=== PATIENT | female | born 1955 | race Caucasian/White ===

== ENCOUNTER 2018-04-12 12:43 | Emergency (ER) | payer MEDICARE ==
[2018-04-12] VITALS (7 sets, daily range): BP systolic 142–168; BP diastolic 62–101; PULSE 67–92; RESP 16–18; TEMP 99; O2SAT 96–98
[~2018-04-12 12:43] MED LIST: CALCCHW25 PO; CYMB60CA PO; HYDR-3133 PO; INFL100P IV; LIBRAX PO; LIDO5T TOP; LORTA10 PO; OMEP20CA5 PO; POLY119S PO; SERU1POW PO; SULF500 PO; VITA400D PO; ZOFR4TAB3 SL
[2018-04-12] MEDS ORDERED: SODIUM CHLOR 0.9% 1000 ML INJ 1,000 ML IV SCH (13:21)
[2018-04-12] MEDS ORDERED: METH2.5T PO (13:30)
[2018-04-12] MEDS ORDERED: CYMB60CA PO (13:30)
[2018-04-12] MEDS ORDERED: MORPHINE SULFATE 2 MG/ML SYRINGE IV PUSH ONE ×2 (13:30→15:45)
[2018-04-12] MEDS ORDERED: FOLI400T PO (13:30)
[2018-04-12] MEDS ORDERED: ONDANSETRON ODT 4 MG TAB PO ONE (13:30)
[2018-04-12] MEDS ORDERED: SODIUM CHLORIDE 0.9% FLUSH 10 ML FLUSH IV FLUSH PRN (13:30)
[2018-04-12] MEDS ORDERED: INFL100P INFIL (13:30)
[2018-04-12] MEDS ORDERED: TREX5TAB IM (13:30)
--- NOTE | 2018-04-12 13:40 | PD ---
HPI Chief Complaint: Abdominal Pain Time Seen by Provider: 13:16 Travel History International Travel<30 days: No Contact w/Intl Traveler<30days: No Traveled to known affect area: No History of Present Illness HPI 62-year-old female with history of Crohn's, alcohol induced pancreatitis 4 years ago, here with complaints of abdominal pain and possible pancreatitis. Patient reports that the pain has been going on for about 4 weeks. She was seen by her corn miller on Friday at [facility], and lab work was ordered by them to be performed tomorrow. Patient states that overnight her pain has significantly increased. Pain is epigastric, described as cramping, constant. Patient reports several loose/brown bowel movements that are nonbloody. She also reports intermittent episodes of clear emesis that is also nonbloody and nonbilious. History of cholecystectomy, hysterectomy, and appendectomy. No fevers or chills. No chest pain. 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, SCLERODERMA, LUPUS) Anxiety: Yes Depression: Yes Cancer: No Cardiovascular Problems: No Diabetes: No Diminished Hearing: No Endocrine: No Gastrointestinal Disorders: Yes (ESOPHAGEAL DILTATIONS) GERD: Yes Genitourinary: Yes (URETHRAL DILITATION Q4-6 MONTHS) Hiatal Hernia: No Immune Disorder: Yes (LUPUS) Kidney Stones: No Musculoskeletal: Yes Neurologic: No Psychiatric: Yes (DEPRESSION) Respiratory: Yes (LLL COLLAPSED 3 WEEKS AGO) Immunizations Current: No Renal Failure: No Thyroid Disease: No Tetanus Vaccination: > 5 Years Influenza Vaccination: Yes ?: Not : 1 : 1 Past Surgical History Abdominal Surgery: Yes ( PANCREATIC SURGERY) AICD: No Appendectomy: Yes Body Medical Devices: PANCREATIC STENTS Cardiac Surgery: No Cholecystectomy: Yes Ear Surgery: No Endocrine Surgery: No Eye Surgery: No Genitourinary Surgery: No Gynecologic Surgery: Yes (HYSTERECTOMY) Hysterectomy: Yes Joint Replacement: No Oral Surgery: Yes (TONSILLECTOMY) Pacemaker: No Thoracic Surgery: No Tonsillectomy: Yes Other Surgery: Yes (ESOPHAGEAL DILITATIONS, PANCREATIC DUCT REPAIR) Social History Alcohol Use: No (DENIES/quit 3 years ago) Tobacco Use: Yes (4 CIGS A DAY) Substance Use: Yes (mj, hx of etoh) Allergies-Medications (Allergen,Severity, Reaction): Coded Allergies: atropine (Verified Adverse Reaction, Severe, SEVERE AGGITATION, 04/12/18) benztropine (Verified Adverse Reaction, Severe, SEVERE AGGITATION, 04/12/18 ) cyclopentolate (Verified Adverse Reaction, Severe, SEVERE AGGITATION, 04/12) glycopyrrolate (Verified Adverse Reaction, Severe, SEVERE AGGITATION, 04/12) ipratropium (Verified Adverse Reaction, Severe, SEVERE AGGITATION, 04/12/18 ) oxybutynin (Verified Adverse Reaction, Severe, SEVERE AGGITATION, 04/12/18) trihexyphenidyl (Verified Adverse Reaction, Severe, SEVERE AGGITATION, ) tropicamide (Verified Adverse Reaction, Severe, SEVERE AGGITATION, 04/12/18 ) Uncoded Allergies: NSAIDS (Adverse Reaction, Severe, STOMACH CRAMPING, 07/11/11) SINACLON (Adverse Reaction, Severe, SUICIDAL IDEATIONS, 07/11/11) Reported Meds & Prescriptions Reported Meds & Active Scripts Active Reported Calcium 500 +D (Calcium Carbonate-Cholecalciferol) 500-400 Mg-Unit Tab 1 Tab PO BID Vitamin D-400 (Cholecalciferol) 400 Unit Tab 400 Units PO DAILY Lorazepam 1 Mg Tab 1 Mg PO HS PRN Lidocaine Patch 12 HR (Lidocaine) 5 % Patch 1 Patch TOPICAL DAILY PRN Remove patch after 12 hours Digestive Advantage Probiotic (Lactobacillus Rhamnosus (GG)) 1 Chew 1 Tab CHEW DAILY Zofran (Ondansetron HCl) 4 Mg Tab 4 Mg PO Q6HR PRN Hydrocodone-Acetaminophen 10-300 Tab 1 Tab PO Q6H PRN Omeprazole 20 Mg Tab 20 Mg PO DAILY Librax (Chlordiazepoxide/Clidinium) 5-2.5 Mg Cap 1 Cap PO TID PRN Trexall (Methotrexate) 5 Mg Tab 5 Mg IM Q7D Methotrexate 2.5 Mg Tab 8 Mg PO Q7D Folic Acid 0.4 Mg Tab 1,000 Mcg PO DAILY Cymbalta DR (Duloxetine HCl) 60 Mg Capdr 60 Mg PO DAILY Remicade Inj (Infliximab) 100 Mg Inj 10 Mg INFIL [id number] Review of Systems Except as stated in HPI: all other systems reviewed are Neg Physical Exam Narrative GENERAL: Well-developed, thin, no apparent distress. SKIN: Focused skin assessment warm/dry. HEAD: Atraumatic. Normocephalic. EYES: Pupils equal and round. No scleral icterus. No injection or drainage. ENT: No nasal bleeding or discharge. Mucous membranes pink and dry. NECK: Trachea midline. No JVD. CARDIOVASCULAR: Regular rate and rhythm. No murmur appreciated. RESPIRATORY: No accessory muscle use. Clear to auscultation. Breath sounds equal bilaterally. GASTROINTESTINAL: Abdomen soft, nondistended. Mild epigastric tenderness without peritoneal signs. Normal bowel sounds. No hernias. MUSCULOSKELETAL: No obvious deformities. No clubbing. No cyanosis. No edema. NEUROLOGICAL: Awake and alert. No obvious cranial nerve deficits. Motor grossly within normal limits. Normal speech. PSYCHIATRIC: Appropriate mood and affect; insight and judgment normal. Data Data Last Documented VS Vital Signs Date Time Temp Pulse Resp B/P (MAP) Pulse Ox O2 Delivery O2 Flow Rate FiO2 04/12/18 14:59 67 16 154/62 (92) 96 Room Air 04/12/18 12:47 99.0 Orders Orders Complete Blood Count With Diff (04/12/18 13:21) Comprehensive Metabolic Panel (04/12/18 13:21) Lipase (04/12/18 13:21) Prothrombin Time / Inr (Pt) (04/12/18 13:21) Act Partial Throm Time (Ptt) (04/12/18 13:21) Ct Abd/Pel W Iv Contrast(Rout) (04/12/18 13:21) Iv Access Insert/Monitor (04/12/18 13:21) Ecg Monitoring (04/12/18 13:21) Oximetry (04/12/18 13:21) Sodium Chlor 0.9% 1000 Ml Inj (Ns 1000 M (04/12/18 13:21) Sodium Chloride 0.9% Flush (Ns Flush) (04/12/18 13:30) Ondansetron Odt (Zofran Odt) (04/12/18 13:30) Morphine Inj (Morphine Inj) (04/12/18 14:00) Promethazine Inj (Phenergan Inj) (04/12/18 15:15) Iohexol 350 Inj (Omnipaque 350 Inj) (04/12/18 15:22) Labs Laboratory Tests Test 04/12/18 13:30 White Blood Count 5.7 TH/MM3 Red Blood Count 4.00 MIL/MM3 Hemoglobin 12.3 GM/DL Hematocrit 37.2 % Mean Corpuscular Volume 92.9 FL Mean Corpuscular Hemoglobin 30.6 PG Mean Corpuscular Hemoglobin Concent 33.0 % Red Cell Distribution Width 13.6 % Platelet Count 358 TH/MM3 Mean Platelet Volume 7.2 FL Neutrophils (%) (Auto) 78.7 % Lymphocytes (%) (Auto) 16.5 % Monocytes (%) (Auto) 4.1 % Eosinophils (%) (Auto) 0.3 % Basophils (%) (Auto) 0.4 % Neutrophils # (Auto) 4.6 TH/MM3 Lymphocytes # (Auto) 0.9 TH/MM3 Monocytes # (Auto) 0.2 TH/MM3 Eosinophils # (Auto) 0.0 TH/MM3 Basophils # (Auto) 0.0 TH/MM3 CBC Comment DIFF FINAL Differential Comment Blood Urea Nitrogen 10 MG/DL Creatinine 0.53 MG/DL Random Glucose 100 MG/DL Total Protein 7.0 GM/DL Albumin 3.7 GM/DL Calcium Level 9.3 MG/DL Alkaline Phosphatase 25 U/L Aspartate Amino Transf (AST/SGOT) 15 U/L Alanine Aminotransferase (ALT/SGPT) 20 U/L Total Bilirubin 0.2 MG/DL Sodium Level 137 MEQ/L Potassium Level 4.2 MEQ/L Chloride Level 104 MEQ/L Carbon Dioxide Level 26.7 MEQ/L Anion Gap 6 MEQ/L Estimat Glomerular Filtration Rate 118 ML/MIN Lipase 97 U/L MDM Medical Decision Making Medical Screen Exam Complete: Yes Emergency Medical Condition: Yes Differential Diagnosis Gastritis, pancreatitis, peptic ulcer disease, enteritis Narrative Course Vital signs reviewed. CBC: WBC 5.7, hemoglobin 12.3, hematocrit 37.2, platelets 358, neutrophils 78%. CMP is unremarkable. Lipase is 97. CT abdomen pelvis: CONCLUSION: 1. Air-filled common bile duct with history of sphincterotomy 2. Stable liver lesions are probably hemangioma 3. No inflammatory changes in the abdomen 4. No etiology for the patient's normal pain. Patient was made aware of all findings. She is resting comfortably. This pain has been going on for over a month. At this point she is stable for discharge home with further workup and evaluation by her corn miller and primary care physician this week. She was advised on when to return to the emergency department patient verbalizes understanding and agreement with plan. Diagnosis Primary Impression: Abdominal pain Qualified Codes: R10.13 - Epigastric pain Referrals: Access Database Developer 3 days Primary Care Physician 3 days Additional Instructions: Follow-up with your primary care physician this week. Follow-up with your corn miller this week. Return to the emergency department for worsening symptoms or any other concerns. Scripts Promethazine (Phenergan) 25 Mg Tablet 25 MG PO Q6H Y for NAUSEA OR VOMITING, #20 TAB 0 Refills Prov: Cecil Carreon MD 04/12/18 Hydrocodone-Acetaminophen (Hydrocodone-Acetaminophen) 5-325 mg Tab 1 TAB PO Q6H Y for PAIN, #10 TAB 0 Refills Prov: Cecil Carreon MD 04/12/18 Disposition: 01 DISCHARGE HOME Condition: Stable Cecil Carreon MD April 12, 2018 13:39
[2018-04-12] MEDS ORDERED: MORPHINE SULFATE 4 MG/ML INJ IV PUSH ONE (14:00)
[2018-04-12 14:10] LABS: AUTOMATED NEUTROPHIL # 4.6 TH/MM3 (1.8-7.7); BASOPHIL % 0.4 % (0.0-2.0); EOSINOPHIL % 0.3 % (0.0-4.0); HEMATOCRIT 37.2 % (35.0-46.0); HEMOGLOBIN 12.3 GM/DL (11.6-15.3); LYMPH % 16.5 % (9.0-44.0); LYMPHOCYTE # 0.9 TH/MM3 (1.0-4.8); MEAN CELL VOLUME 92.9 FL (80.0-100.0); MEAN CORPUSCULAR HEMOGLOBIN 30.6 PG (27.0-34.0); MEAN PLATELET VOLUME 7.2 FL (7.0-11.0); MONO % 4.1 % (0.0-8.0); MONOCYTE # 0.2 TH/MM3 (0-0.9); NEUT % 78.7 % (16.0-70.0); PLATELET COUNT 358 TH/MM3 (150-450); RED CELL DISTRIBUTION WIDTH 13.6 % (11.6-17.2); WHITE BLOOD COUNT 5.7 TH/MM3 (4.0-11.0)
[2018-04-12] MEDS ORDERED: CALC1TAB12 PO (14:23)
[2018-04-12] MEDS ORDERED: ZOFR4TAB PO (14:23)
[2018-04-12] MEDS ORDERED: LIDO1PAD52 TOPICAL (14:23)
[2018-04-12] MEDS ORDERED: OMEP20TA93 PO (14:23)
[2018-04-12] MEDS ORDERED: HYDR-2374 PO (14:23)
[2018-04-12] MEDS ORDERED: PROB1CHW4 CHEW (14:23)
[2018-04-12] MEDS ORDERED: LIBRAX PO (14:23)
[2018-04-12] MEDS ORDERED: LORA1TAB12 PO (14:23)
[2018-04-12] MEDS ORDERED: VITATAB56 PO (14:23)
[2018-04-12 14:33] LABS: CHLORIDE 104 MEQ/L (98-107); SODIUM (NA) 137 MEQ/L (136-145)
[2018-04-12 14:38] LABS: ALBUMIN 3.7 GM/DL (3.4-5.0); BICARBONATE 26.7 MEQ/L (21.0-32.0); BLOOD UREA NITROGEN 10 MG/DL (7-18); CALCIUM 9.3 MG/DL (8.5-10.1); GLUCOSE,RANDOM 100 MG/DL (74-106)
[2018-04-12 14:41] LABS: ALT (GPT) 20 U/L (10-53); AST (GOT) 15 U/L (15-37); CREATININE 0.53 MG/DL (0.50-1.00); GLOMERULAR FILTRATION RATE 118 ML/MIN (>89)
[2018-04-12 14:43] LABS: TOTAL BILIRUBIN ADULT 0.2 MG/DL (0.2-1.0)
[2018-04-12 14:44] LABS: ALKALINE PHOSPHATASE 25 U/L (45-117)
[2018-04-12] MEDS ORDERED: PROMETHAZINE INJ 25 MG/ML VIAL IM ONE (15:15)
[2018-04-12] MEDS ORDERED: IOHEXOL 350 MG/ML 10 ML VIAL (for RAD DIAG) IVCONTRAST ONE (15:22)
--- NOTE | 2018-04-12 15:34 | RADRPT ---
EXAM DATE/TIME: 04/12/2018 15:14 [facility] COMPARISON: CT ABDOMEN & PELVIS W CONTRAST, May 22, 2016, 21:19. INDICATIONS : Left upper abdominal pain with nausea, vomiting and diarrhea. IV CONTRAST: 85 cc Omnipaque 350 (iohexol) IV ORAL CONTRAST: No oral contrast ingested. RADIATION DOSE: 4.55 CTDIvol (mGy) MEDICAL HISTORY : Crohn's disease. Gastroesophageal reflux disease. SURGICAL HISTORY : Appendectomy. Cholecystectomy.Hysterectomy.Esophogeal dilation. Pancreatic duct repair. Urethral dila tion. ENCOUNTER: Initial ACUITY: 4 - 6 days PAIN SCALE: 6/10 LOCATION: Left upper quadrant abdomen TECHNIQUE: Volumetric scanning of the abdomen and pelvis was performed. Using automated exposure control and ad justment of the mA and/or kV according to patient size, radiation dose was kept as low as reasonably achievable to obtain optimal diagnostic quality images. DICOM format image data is available electro nically for review and comparison. FINDINGS: The lower lungs are clear. Circumscribed low density lesions in the liver probably hemangioma stable in interval. Air in the co mmon bile duct. Spleen, pancreas and adrenals appear normal Symmetrical renal function No ascites or adenopathy Moderate stool throughout the colon without inflammatory changes In the pelvis bladder, adnexa regions unremarkable There is no inguinal adenopathy. Abdominal walker intact. Review of bone windows reveals only degenerative changes. CONCLUSION: 1. Air-filled common bile duct with history of sphincterotomy 2. Stable liver lesions are probably hemangioma 3. No inflammatory changes in the abdomen 4. No etiology for the patient's normal pain. Her Kendall Nolen MD FACR on April 12, 2018 at 15:29 Board Certified Radiologist. This report was verified electronically.
[2018-04-12] MEDS ORDERED: PROM25TA10 PO (15:47)
[2018-04-12] MEDS ORDERED: HYDR-3516 PO (15:47)
[2018-04-12] MEDS ORDERED: MORPHINE SULFATE 4 MG/ML INJ IV ONE (16:15)
== END 2018-04-12 16:46 | disposition home or self-care (01) ==
LOC: PHED 12:43
DX: R10.13 Epigastric pain (principal); K50.90 Crohn's disease, unspecified, without complications; M32.9 Systemic lupus erythematosus, unspecified; M35.1 Other overlap syndromes; F41.9 Anxiety disorder, unspecified; F32.9 Major depressive disorder, single episode, unspecified; K21.9 Gastro-esophageal reflux disease without esophagitis; F17.210 Nicotine dependence, cigarettes, uncomplicated; F12.90 Cannabis use, unspecified, uncomplicated
CPT/HCPCS: 74177; 80053; 83690; 85025; 85610; 85730; 96361; 96372; 96374; 99284; J2270; J2550; J7030; Q9967